=== PATIENT | female | born 2000 | race Caucasian/White ===

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

== ENCOUNTER 2024-03-12 15:23 | Emergency (ER) | payer MEDICAID, OTHER ==
[~2024-03-12] VITALS: Ht 162.6 cm; Wt 77.8 kg
[2024-03-12] MEDS ORDERED: DIVA250T7 (15:35)
[2024-03-12] MEDS ORDERED: ARIP20TA51 PO (15:35)
[2024-03-12] MEDS ORDERED: QUET100T2 PO (15:35)
[2024-03-12] MEDS ORDERED: ATIV1TAB10 PO (15:35)
[2024-03-12] MEDS ORDERED: DEBL1TAB PO (15:35)
[2024-03-12 16:57] LABS: HEMATOCRIT 40.2 % (36.0-47.0); HEMOGLOBIN 13.9 g/dl (12.0-15.5); MEAN CORPUSCULAR HGB CONC 34.6 g/dl (32.0-36.5); MEAN CORPUSCULAR VOLUME 92.4 fl (80.0-96.0); PLATELET COUNT, AUTOMATED 243 10^3/uL (150-450); RED BLOOD COUNT 4.35 10^6/uL (4.00-5.40); WHITE BLOOD COUNT 9.1 10^3/uL (4.0-10.0)
[2024-03-12 17:20] LABS: AMPHETAMINES LEVEL URINE NEGATIVE (NEGATIVE); BARBITURATES URINE NEGATIVE (NEGATIVE); BENZODIAZEPINES URINE NEGATIVE (NEGATIVE); CANNABINOIDS URINE NEGATIVE (NEGATIVE); COCAINE METABOLITE URINE NEGATIVE (NEGATIVE); METHADONE URINE NEGATIVE (NEGATIVE); OPIATES URINE NEGATIVE (NEGATIVE); PHENCYCLIDINE URINE NEGATIVE (NEGATIVE)
[2024-03-12 17:22] LABS: ETHYL ALCOHOL (ETHANOL) < 0.003 % (0.000-0.010)
[2024-03-12 17:24] LABS: ALBUMIN 3.7 G/DL (3.2-5.2); ALKALINE PHOSPHATASE 63 U/L (35-104); ALT/SGPT 26 U/L (7.0-40); AST/SGOT 16 U/L (<34); BILIRUBIN,DIRECT 0.1 MG/DL (<0.4); BILIRUBIN,TOTAL 0.4 MG/DL (0.3-1.2); BLOOD UREA NITROGEN 11 MG/DL (9-23); CALCIUM LEVEL 9.1 MG/DL (8.5-10.1); CARBON DIOXIDE LEVEL 24 MMOL/L (20-31); CHLORIDE LEVEL 108 MMOL/L (98-107); CREATININE FOR GFR 0.72 MG/DL (0.55-1.30); GLOMERULAR FILTRATION RATE > 60.0 (>60); GLUCOSE, FASTING 85 MG/DL (60-100); HCG, SERUM QUALITATIVE NEGATIVE (NEGATIVE); POTASSIUM SERUM 4.1 MMOL/L (3.5-5.1); SALICYLATE LEVEL < 3.0 MG/DL (<30); SODIUM LEVEL 142 MMOL/L (136-145); TOTAL PROTEIN 6.8 G/DL (5.7-8.2)
[2024-03-12 17:26] LABS: THYROID STIMULATING HORMONE 5.691 uIU/ML (0.55-4.78)
[2024-03-12] MEDS ORDERED: QUEtiapine FUMARATE 50MG TAB PO PRN (18:10)
[2024-03-12] MEDS: DIVALPROEX 250MG *ER* TAB PO SCH (21:01)
[2024-03-12] MEDS: LORazepam 0.5 MG TAB PO SCH (21:02)
[2024-03-13] MEDS ORDERED: DIVA250T7 PO (00:27)
[2024-03-13] MEDS ORDERED: HOME MED LIST COMPLETE! XX SCH (00:30)
[2024-03-13] MEDS: ARIPiprazole 10 MG TAB PO SCH (09:07)
[2024-03-13 11:47] VITALS: BP 106/67; TEMP 97.8; O2SAT 100
== END 2024-03-13 11:50 | disposition home or self-care (01) ==
LOC: M ED 15:23
DX: F43.0 Acute stress reaction (principal); F41.9 Anxiety disorder, unspecified; F31.9 Bipolar disorder, unspecified; R41.89 Other symptoms and signs involving cognitive functions and awareness